=== PATIENT | female | born 1950 | race Caucasian/White ===

== ENCOUNTER → 2017-01-16 | Outpatient (CLI) | payer MEDICARE, OTHER ==
[~2017-01-16] MED LIST: AMLO5TAB2 PO; AMLO5TAB4 PO; ASPI-496 PO; ATOR40TA PO; CARV-39 PO; CLOP75TA52 PO; DOCU-131 PO; FENO145T32 PO; FURO-93 PO; FURO20TA3 PO; HYDR-3245 PO; HYDR-3307 PO; LEVO125T5 PO; LEVO150T PO; LISI-170 PO; LISI1TAB5 PO; LISI40TA PO; METF500T4 PO; METO50TA82 PO; PIOG30TA4 PO; POTA20LI PO; ROSU40TA PO
== END | disposition home or self-care (01) ==
LOC: STAR 10:18
PROVIDERS: ATTEND Surgery
DX: Z01.818 Encounter for other preprocedural examination (principal)
CPT/HCPCS: 93005

== ENCOUNTER → 2017-06-02 | Outpatient (CLI) | payer MEDICARE, OTHER ==
[~2017-06-02] MED LIST changes: +CALC1TAB68 PO; +HYDR-3240 PO
== END | disposition home or self-care (01) ==
LOC: CFH 08:40
PROVIDERS: ATTEND Licensed Practical Nurse
DX: Z12.31 Encounter for screening mammogram for malignant neoplasm of breast (principal)
CPT/HCPCS: 77067

== ENCOUNTER → 2017-06-26 | Outpatient (CLI) | payer MEDICARE, OTHER | END | disposition home or self-care (01) | LOC: RAD 15:26 → EDSTATUS 16:00 | PROVIDERS: ATTEND Internal Medicine | DX: R22.1 Localized swelling, mass and lump, neck (principal) | CPT/HCPCS: 76536 ==

== ENCOUNTER → 2018-07-09 | Outpatient (CLI) | payer MEDICARE, OTHER ==
[~2018-07-09] MED LIST changes: +AMLO-150 PO; -AMLO5TAB2 PO; +METF500T17 PO; -METF500T4 PO
== END | disposition home or self-care (01) ==
LOC: CFH 11:00
PROVIDERS: ATTEND Licensed Practical Nurse
DX: M81.0 Age-related osteoporosis without current pathological fracture (principal)
CPT/HCPCS: 77080

== ENCOUNTER → 2018-08-03 | Outpatient (CLI) | payer MEDICARE, OTHER ==
[~2018-08-03] MED LIST changes: +OMNIPAQUE 350 MG/ML, 100ML BOTTLE ONE
== END | disposition home or self-care (01) ==
LOC: CFH 14:13
PROVIDERS: ATTEND Internal Medicine
DX: E78.2 Mixed hyperlipidemia (principal); R22.1 Localized swelling, mass and lump, neck; E89.0 Postprocedural hypothyroidism; I10 Essential (primary) hypertension; I25.10 Atherosclerotic heart disease of native coronary artery without angina pectoris; R93.0 Abnormal findings on diagnostic imaging of skull and head, not elsewhere classified; Z95.1 Presence of aortocoronary bypass graft
CPT/HCPCS: 70491; 93880; Q9967

== ENCOUNTER → 2018-08-06 | Outpatient (CLI) | payer MEDICARE, OTHER ==
[~2018-08-06] MED LIST changes: -OMNIPAQUE 350 MG/ML, 100ML BOTTLE ONE
== END | disposition home or self-care (01) ==
LOC: CFH 10:49
PROVIDERS: ATTEND Surgery
DX: Z08 Encounter for follow-up examination after completed treatment for malignant neoplasm (principal); E11.9 Type 2 diabetes mellitus without complications; E78.00 Pure hypercholesterolemia, unspecified; I10 Essential (primary) hypertension; Z85.850 Personal history of malignant neoplasm of thyroid
CPT/HCPCS: 76536

== ENCOUNTER → 2018-08-24 | Outpatient (CLI) | payer MEDICARE, OTHER ==
[2018-08-24 13:09] LABS: ANION GAP 8 mmol/L (5-15); CALCIUM 10.6 mg/dL (8.5-10.1); CHLORIDE 101 mmol/L (98-107); CREATININE 1.72 mg/dL (0.55-1.02)
== END | disposition home or self-care (01) ==
LOC: CFH 09:37
PROVIDERS: ATTEND Internal Medicine Cardiovascular Disease
DX: I10 Essential (primary) hypertension (principal)
CPT/HCPCS: 36415; 80048

== ENCOUNTER 2019-01-07 08:50 | Outpatient (CLI) | payer MEDICARE, OTHER ==
[~2019-01-07 08:50] MED LIST changes: -HYDR-3307 PO; +HYDR-36 PO; +LISI1TAB19 PO; -LISI1TAB5 PO; -POTA20LI PO; +POTA20LI2 PO
[2019-01-07] MEDS ORDERED: CHOL500015 PO (09:33)
[2019-01-07] MEDS ORDERED: LISI-167 PO (09:33)
[2019-01-07] MEDS ORDERED: LUTE1CAP6 PO (09:33)
[2019-01-07] MEDS ORDERED: AMLO-150 PO (09:33)
[2019-01-07] MEDS ORDERED: LISI1TAB20 PO (09:33)
[2019-01-07] MEDS ORDERED: ASPI81TA45 PO (09:33)
[2019-01-07] MEDS ORDERED: EMPA10TA PO (09:33)
[2019-01-07 09:40] LABS: BASOPHILS # (AUTO) 0.03 x10^3/uL (0-0.1); BASOPHILS % (AUTO) 1 % (0-1); EOSINOPHILS % (AUTO) 5 % (1-7); LYMPHOCYTES # (AUTO) 1.38 x10^3/uL (1-3.4); LYMPHOCYTES % (AUTO) 32 % (22-44); MD NO; MEAN CORPUSCULAR HEMOGLOBIN 31.1 pg (27.0-34.8); MEAN CORPUSCULAR HGB CONC 33.4 g/dL (32.4-35.8); MEAN CORPUSCULAR VOLUME 93.2 fL (80-100); MEAN PLATELET VOLUME 7.6 fL (7.4-10.4); MONOCYTES # (AUTO) 0.42 x10^3/uL (0.2-0.8); MONOCYTES % (AUTO) 10 % (2-9); NEUTROPHILS # (AUTO) 2.36 x10^3/uL (1.8-6.8); NEUTROPHILS % (AUTO) 54 % (42-75); PLATELET COUNT 219 x10^3/uL (130-400); RED BLOOD COUNT 4.42 x10^6/uL (3.82-5.3); RED CELL DISTRIBUTION WIDTH 13.4 % (9.6-15.2)
[2019-01-07 09:48] LABS: ANION GAP 10 mmol/L (5-15); CALCIUM 9.6 mg/dL (8.5-10.1); CHLORIDE 104 mmol/L (98-107)
[2019-01-07 09:49] LABS: CREATININE 1.49 mg/dL (0.55-1.02)
[2019-01-18] MEDS ORDERED: metformin PO (10:19)
== END 2019-01-07 23:59 | disposition home or self-care (01) ==
LOC: STAR 08:50
PROVIDERS: ATTEND Internal Medicine Cardiovascular Disease
DX: Z01.818 Encounter for other preprocedural examination (principal); I25.10 Atherosclerotic heart disease of native coronary artery without angina pectoris; I25.2 Old myocardial infarction; I12.9 Hypertensive chronic kidney disease with stage 1 through stage 4 chronic kidney disease, or unspecified chronic kidney disease; E11.22 Type 2 diabetes mellitus with diabetic chronic kidney disease; N18.9 Chronic kidney disease, unspecified; E03.9 Hypothyroidism, unspecified; R07.9 Chest pain, unspecified; R93.1 Abnormal findings on diagnostic imaging of heart and coronary circulation; E11.65 Type 2 diabetes mellitus with hyperglycemia
CPT/HCPCS: 36415; 80048; 85025

== ENCOUNTER 2019-01-20 07:19 | Observation (INO) | payer MEDICARE, OTHER ==
[2019-01-18 10:24] LABS: BASOPHILS # (AUTO) 0.04 x10^3/uL (0-0.1); BASOPHILS % (AUTO) 1 % (0-1); EOSINOPHILS # (AUTO) 0.25 x10^3/uL (0-0.4); EOSINOPHILS % (AUTO) 7 % (1-7); LYMPHOCYTES # (AUTO) 1.28 x10^3/uL (1-3.4); LYMPHOCYTES % (AUTO) 35 % (22-44); MD NO; MEAN CORPUSCULAR HEMOGLOBIN 31.2 pg (27.0-34.8); MEAN CORPUSCULAR HGB CONC 33.4 g/dL (32.4-35.8); MEAN CORPUSCULAR VOLUME 93.4 fL (80-100); MEAN PLATELET VOLUME 7.9 fL (7.4-10.4); MONOCYTES # (AUTO) 0.32 x10^3/uL (0.2-0.8); MONOCYTES % (AUTO) 9 % (2-9); NEUTROPHILS % (AUTO) 49 % (42-75); PLATELET COUNT 294 x10^3/uL (130-400); RED BLOOD COUNT 4.37 x10^6/uL (3.82-5.3); RED CELL DISTRIBUTION WIDTH 13.6 % (9.6-15.2)
[2019-01-18 10:27] LABS: ALBUMIN 4.1 g/dL (3.4-5.0); ANION GAP 10 mmol/L (5-15); CALCIUM 10.1 mg/dL (8.5-10.1); CHLORIDE 101 mmol/L (98-107)
[2019-01-18 10:31] LABS: ALANINE AMINOTRANSFERASE 15 U/L (12-78); ALKALINE PHOSPHATASE 30 U/L (45-117); BILIRUBIN,TOTAL 0.4 mg/dL (0.2-1.0); CREATININE 1.43 mg/dL (0.55-1.02); TOTAL PROTEIN 8.7 g/dL (6.4-8.2)
[~2019-01-20] VITALS: Ht 154.9 cm; Wt 62.0 kg
[~2019-01-20 07:19] MED LIST changes: +ASPI81TA45 PO; +CHOL500015 PO; +EMPA10TA PO; +LISI-167 PO; +LISI1TAB20 PO; +LUTE1CAP6 PO; +metformin PO
[2019-01-20] MEDS ORDERED: METF10007 PO (07:43)
[2019-01-20 07:44] VITALS: BP 131/94
[2019-01-20] MEDS ORDERED: FENTANYL PF 100 MCG/2ML ONE (08:49)
[2019-01-20] MEDS ORDERED: VERAPAMIL 2.5 MG/ML, 2ML ONE (08:50)
[2019-01-20] MEDS ORDERED: HEPARIN 1,000 UNITS/ML, 10ML ONE (08:50)
[2019-01-20] MEDS ORDERED: LIDOCAINE-MPF 1%, 5ML ONE (08:50)
[2019-01-20] MEDS ORDERED: MIDAZOLAM 1 MG/ML, 5ML ONE (08:50)
[2019-01-20] MEDS ORDERED: BIVALIRUDIN 250 MG ONE (08:50)
[2019-01-20] MEDS ORDERED: PRASUGREL 10 MG TABLET ONE (08:51)
[2019-01-20] MEDS ORDERED: NITROGLYCERIN 5 MG/ML, 10ML ONE (08:52)
[2019-01-20] MEDS ORDERED: LIDOCAINE 2%, 20ML ONE (09:00)
[2019-01-20] MEDS ORDERED: BIVALIRUDIN 250 MG in SODIUM CHLORIDE 0.9% 50 ML IV SCH (10:00)
[2019-01-20] MEDS ORDERED: SODIUM CHLORIDE 0.9% 1,000 ML IV SCH (10:00)
[2019-01-20 14:20] VITALS: BP 116/73
[2019-01-20 16:56] LABS: TROPONIN I 0.023 ng/mL (0.000-0.045)
[2019-01-20] MEDS ORDERED: metFORMIN 500 MG TABLET PO SCH ×2 (17:00→21:00)
[2019-01-20 19:39] VITALS: BP 122/75
[2019-01-20] MEDS: AMLODIPINE 5 MG TABLET PO SCH (20:40)
[2019-01-20] MEDS: METOPROLOL TARTRATE 50 MG TABLET PO SCH (20:40)
[2019-01-20] MEDS ORDERED: ATORVASTATIN 80 MG TABLET PO SCH (21:00)
[2019-01-21 00:13] VITALS: BP 115/73
[2019-01-21 04:44] LABS: ANION GAP 5 mmol/L (5-15); CALCIUM 9.1 mg/dL (8.5-10.1); CHLORIDE 110 mmol/L (98-107)
[2019-01-21 04:45] LABS: CREATININE 1.13 mg/dL (0.55-1.02)
[2019-01-21] MEDS ORDERED: METO25TA91 PO (07:20)
[2019-01-21] MEDS ORDERED: PRAS10TA4 PO (07:20)
[2019-01-21 07:39] VITALS: BP 129/78
[2019-01-21 07:59] VITALS: BP 130/69
[2019-01-21] MEDS: AMLODIPINE 5 MG TABLET PO SCH (08:36)
[2019-01-21] MEDS: METOPROLOL TARTRATE 50 MG TABLET PO SCH (08:36)
[2019-01-21] MEDS ORDERED: LUTEIN PO SCH (09:00)
[2019-01-21] MEDS ORDERED: LEVOTHYROXINE 100 MCG TABLET PO SCH (09:00)
[2019-01-21] MEDS ORDERED: EMPAGLIFLOZIN 10 MG PO SCH (09:00)
[2019-01-21] MEDS ORDERED: ZEAXANTHIN PO SCH (09:00)
[2019-01-21] MEDS ORDERED: CHOLECALCIFEROL 5,000u TAB PO SCH (09:00)
[2019-01-21] MEDS ORDERED: PRASUGREL 10 MG TABLET PO SCH (09:00)
[2019-01-21] MEDS ORDERED: HYDROCHLOROTHIAZIDE 25 MG TABLET PO SCH (09:00)
[2019-01-21] MEDS ORDERED: ASPIRIN 81 MG TABLET EC PO SCH ×2 (09:00)
[2019-01-21] MEDS ORDERED: LISINOPRIL 20 MG TABLET PO SCH (09:00)
[2019-01-21] MEDS ORDERED: LISINOPRIL 10 MG TABLET PO SCH (09:00)
[2019-01-21] MEDS ORDERED: FENOFIBRATE 145 MG TABLET PO SCH (09:00)
== END 2019-01-21 13:25 | disposition home or self-care (01) ==
LOC: CACL 07:19 → 5SO 10:00 → CACL 11:57 → DCLOUNGE 01-21 13:12
PROVIDERS: ADMIT Internal Medicine Cardiovascular Disease; ATTEND Internal Medicine Cardiovascular Disease
DX: I25.10 Atherosclerotic heart disease of native coronary artery without angina pectoris (principal); I25.2 Old myocardial infarction; Z95.1 Presence of aortocoronary bypass graft; I10 Essential (primary) hypertension; E78.2 Mixed hyperlipidemia; N18.9 Chronic kidney disease, unspecified; E03.9 Hypothyroidism, unspecified; Z79.82 Long term (current) use of aspirin; E11.9 Type 2 diabetes mellitus without complications; E78.00 Pure hypercholesterolemia, unspecified
CPT/HCPCS: 36415; 80048; 80053; 84484; 85018; 85025; 92920; 93005; 99156; C1725; C1760; C1769; C1874; C1887; C1894; C9600; G0378; J0583; J2250; J3010; J3490; J7030; Q9967; J1644

== ENCOUNTER → 2019-08-11 | Outpatient (CLI) | payer MEDICARE, OTHER ==
[~2019-08-11] MED LIST changes: +METF10007 PO; +METO25TA91 PO; -PIOG30TA4 PO; +PIOG30TA68 PO; +PRAS10TA4 PO
== END | disposition home or self-care (01) ==
LOC: CFH 09:22
PROVIDERS: ATTEND Internal Medicine
DX: Z12.31 Encounter for screening mammogram for malignant neoplasm of breast (principal)
CPT/HCPCS: 77063; 77067

== ENCOUNTER → 2019-10-07 | Outpatient (CLI) | payer MEDICARE, OTHER ==
[~2019-10-07] MED LIST changes: +HYDR-3246 PO; -HYDR-36 PO
== END | disposition home or self-care (01) ==
LOC: CFH 09:37
PROVIDERS: ATTEND Internal Medicine Cardiovascular Disease
DX: I08.8 Other rheumatic multiple valve diseases (principal); R93.1 Abnormal findings on diagnostic imaging of heart and coronary circulation; I25.10 Atherosclerotic heart disease of native coronary artery without angina pectoris
CPT/HCPCS: 93306

== ENCOUNTER 2020-06-21 08:19 | Emergency (ER) | payer MEDICARE, OTHER ==
[~2020-06-21] VITALS: Ht 152.4 cm; Wt 60.5 kg
[~2020-06-21 08:19] MED LIST changes: +HYDR-1067 PO; -HYDR-3240 PO; -HYDR-3245 PO; -HYDR-3246 PO; +HYDR-3248 PO; +HYDR1TAB53 PO; -LISI1TAB19 PO; +LISI1TAB39 PO; -LISI40TA PO; +LISI40TA9 PO
--- NOTE | 2020-06-21 09:21 | NUR ---
PATIENT SITTING IN GURNEY ON PHONE, NADN, VSS, CALL LIGHT WITHIN REACH. AWAITNG PROVIDER ORDERS.
--- NOTE | 2020-06-21 09:27 | NUR ---
URINE SAMPLE COLLECTED AND WALKED TO LAB.
--- NOTE | 2020-06-21 09:39 | NUR ---
DECK OFFICER AT BEDSIDE.
[2020-06-21 09:56] LABS: MICROSCOPIC INDICATED
[2020-06-21 09:59] LABS: BASOPHILS % (AUTO) 1 % (0-1); EOSINOPHILS % (AUTO) 3 % (1-7); LYMPHOCYTES % (AUTO) 10 % (22-44); MEAN CORPUSCULAR HEMOGLOBIN 30.8 pg (27.0-34.8); MEAN CORPUSCULAR HGB CONC 33.2 g/dL (32.4-35.8); MEAN PLATELET VOLUME 8.1 fL (7.4-10.4); MONOCYTES % (AUTO) 8 % (2-9); NEUTROPHILS % (AUTO) 77 % (42-75); PLATELET COUNT 161 x10^3/uL (130-400); RED BLOOD COUNT 4.14 x10^6/uL (3.82-5.3); RED CELL DISTRIBUTION WIDTH 14.1 % (9.6-15.2)
[2020-06-21 10:02] LABS: ALBUMIN 3.5 g/dL (3.4-5.0); ANION GAP 6 mmol/L (5-15); CALCIUM 9.2 mg/dL (8.5-10.1); CHLORIDE 103 mmol/L (98-107); CREATININE 1.32 mg/dL (0.55-1.02)
[2020-06-21 10:03] LABS: MD NO
--- NOTE | 2020-06-21 10:39 | NUR ---
PATIENT AMBULATED TO BATHROOM WITH STEADY GAIT, VSS, PATIENT UP FOR RECHECK.
[2020-06-21 11:14] VITALS: BP 118/63
--- NOTE | 2020-06-21 11:25 | NUR ---
Patient given discharge instructions prescription and they have confirmed that they understand the instructions. Patient stable and ambulatory with steady gait from ED to private vehicle.
== END 2020-06-21 11:26 | disposition home or self-care (01) ==
LOC: ED 08:37
DX: N10 Acute pyelonephritis (principal); R30.0 Dysuria; M79.662 Pain in left lower leg; R10.30 Lower abdominal pain, unspecified; I10 Essential (primary) hypertension; E11.9 Type 2 diabetes mellitus without complications; E78.5 Hyperlipidemia, unspecified; E89.0 Postprocedural hypothyroidism
CPT/HCPCS: 36415; 80048; 81001; 82040; 85025; 87077; 87086; 87186; 99284

== ENCOUNTER → 2020-10-10 | Outpatient (CLI) | payer MEDICARE, OTHER ==
[~2020-10-10] MED LIST changes: -HYDR-1067 PO; +HYDR-2214 PO
== END | disposition home or self-care (01) ==
LOC: RAD 16:32
PROVIDERS: ATTEND Nurse Practitioner
DX: M79.605 Pain in left leg (principal)